=== PATIENT | female | born 1955 | race Caucasian/White ===

== ENCOUNTER → 2024-09-28 | Outpatient (CLI) | payer MEDICARE, OTHER ==
[~2024-09-28] MED LIST: E-Z-GAS II EFFERVESCENT PACKET (SODIUM BICARB./CITRIC ACID/SIMETHICONE) As Ordered ONE; E-Z-HD 98% w/w 340GM SUSP BTL As Ordered ONE; E-Z-PAQUE 96% w/w SUSP 176GM BTL As Ordered ONE
== END ==
LOC: M RAD 08:23
PROVIDERS: ATTEND Surgery
DX: R13.10 Dysphagia, unspecified (principal)

== ENCOUNTER 2024-10-08 09:07 | Day surgery (SDC) | payer MEDICARE, OTHER ==
[~2024-10-08] VITALS: Ht 162.6 cm; Wt 68.0 kg
[~2024-10-08 09:07] MED LIST changes: +ALEV220T22 PO; +B-12100010 PO; +CYCL-707 PO; -E-Z-GAS II EFFERVESCENT PACKET (SODIUM BICARB./CITRIC ACID/SIMETHICONE) As Ordered ONE; -E-Z-HD 98% w/w 340GM SUSP BTL As Ordered ONE; -E-Z-PAQUE 96% w/w SUSP 176GM BTL As Ordered ONE; +EZET10TA21 PO; +FAMO40TA3 PO; +K2 P1TAB PO; +LEVO100T5 PO; +LEVO88TA3 PO; +MONT10TA97 PO; +NS 250 ML IV ONE; +THERTAB52 PO; +VITA50TA6 PO
[2024-10-08] MEDS ORDERED: fentaNYL 100 MCG/2 ML INJECTION As Ordered ONE (10:03)
[2024-10-08 10:52] VITALS: TEMP 97.1
[2024-10-08 11:12] VITALS: BP 142/78; O2SAT 99
== END 2024-10-08 11:20 | disposition home or self-care (01) ==
LOC: M OPP 09:07
PROVIDERS: ATTEND Surgery
DX: R13.10 Dysphagia, unspecified (principal); K29.70 Gastritis, unspecified, without bleeding; K31.89 Other diseases of stomach and duodenum; K25.9 Gastric ulcer, unspecified as acute or chronic, without hemorrhage or perforation; E78.00 Pure hypercholesterolemia, unspecified; K21.9 Gastro-esophageal reflux disease without esophagitis; Z79.899 Other long term (current) drug therapy; Z79.890 Hormone replacement therapy; Z90.710 Acquired absence of both cervix and uterus; Z92.3 Personal history of irradiation; E89.0 Postprocedural hypothyroidism
CPT/HCPCS: 43239; 88305; J3010